=== PATIENT | female | born 1975 | race Caucasian/White ===

== ENCOUNTER 2017-09-23 14:14 | Outpatient (CLI) | payer BC, OTHER ==
--- NOTE | 2017-09-24 08:50 | Ultrasound Report ---
ULTRASOUND THYROID SCAN HISTORY: Hypothyroidism. TECHNIQUE: Grayscale ultrasound with color Doppler interrogation. FINDINGS: The right thyroid lobe measures 4.7 x 2.1 x 1.1 cm. The left thyroid lobe measures 4.1 x 1.6 x 1.5 cm. The isthmus measures 0.7 cm in thickness. The thyroid gland is diffusely heterogeneous but no discrete nodule or cyst is identified on ultrasound. There is symmetric blood flow to the thyroid lobes on color Doppler interrogation. No cervical adenopathy is detected. IMPRESSION: Normal size but diffusely heterogeneous thyroid gland. No discrete nodule. This may represent mild fibrotic changes. Is Elizabeth's thyroiditis a consideration?
== END 2017-09-23 14:15 | disposition home or self-care (01) ==
LOC: US 14:14
PROVIDERS: ATTEND Internal Medicine
DX: E03.9 Hypothyroidism, unspecified (principal)
CPT/HCPCS: 76536